=== PATIENT | male | born 1960 | race African-American/Black ===

== ENCOUNTER → 2017-04-13 | Day surgery (SDC) | payer OTHER ==
[~2017-04-13] MED LIST: GLUCOPHAGE850 MG PO; INVOKANA300 MG PO; LISINOPRIL20 MG PO; MEN'S 50+ DAIL1 EACH PO; METFORMIN HCL500 M1 PO; OXYCODONE-ACET1 EAC1 PO; PANTOPRAZOLE SO40 MG PO; VITAMIN B12-FO1 EACH PO
--- NOTE | ~2017-04-13 | OR ---
Unit #: [id number] #: [id number] Patient: BLAKE WHITT [id number] [address] [place], [place] [address] [id number] MR#: [id number] NAME: BLAKE WHITT ROOM: Date of Procedure: 04/13/2017 Admission Date: 04/13/2017 Surgeon: Sergo Desai III, M.D. : 1960 Attending Physician: Sergo Desai III, M.D. Primary Care Physician: Nabila Degroot M.D. OPERATIVE REPORT PREOPERATIVE DIAGNOSES Abdominal pain and personal history of colon polyps. POSTOPERATIVE DIAGNOSES Abdominal pain and personal history of colon polyps. Moderate gastritis. Moderate duodenitis. Normal colonoscopy. PROCEDURE PERFORMED Esophagogastroduodenoscopy with biopsy and colonoscopy to cecum. ANESTHESIA MAC. SPECIMEN Antrum was sent for MASSIMO and for path. COMPLICATIONS None apparent. INDICATIONS FOR PROCEDURE This is a 57-year-old gentleman, who has done well after lap banding losing 90 pounds. He has recently had some pain on an empty stomach in the epigastric region. He has had no vomiting. He also has a history of colon polyps and needs to have both the upper and lower endoscopies scheduled. DESCRIPTION OF PROCEDURE After the consent was obtained, the patient was brought to the endoscopy suite, and placed in the left lateral decubitus position. We titrated the above sedation and I passed an EGD scope easily into the esophagus under direct visualization. He had normal peristalsis. No evidence of any erosions or esophagitis. His lap band appeared to be in good position. There was no evidence of any kind of recurrent hiatal hernia. The scope passed easily through the band itself. He had some fairly significant gastritis near the antrum of the stomach. Photos and biopsies of this were taken as well as a MASSIMO specimen from the antrum. The pylorus was patent and first and second portions of the duodenum appeared normal. I then retroflexed the scope within the cardia and again, there was no evidence of any erosion of the gastric band itself and again, it appeared to be in good position. The scope was then straightened and carefully withdrawn. I then performed a rectal exam, I did not feel any masses. The scope was placed within the rectal vault. Air was insufflated and I Unit #: [id number] #: [id number] Patient: BLAKE WHITT navigated the scope all the way to the cecum without any difficulty. He had normal mucosa. No evidence any polyps or masses. No diverticular disease was seen. The scope was retroflexed within the rectum. No other masses were seen. The scope was then carefully withdrawn. The patient tolerated the procedure without any problems. I am going to go ahead and start him on Protonix and have him call my office early next I for biopsy results. Dictated by... Sergo Desai III, M.D. [facility] TD: 04/13/2017 14:03 JOB #: [id number] OPERATIVE REPORT Page 1 of 1 X Sergo Desai III, MD PROCEDURE OPERATIVE NOTE
== END | disposition home or self-care (01) ==
LOC: COPS 10:21
DX: K29.50 Unspecified chronic gastritis without bleeding (principal); K29.80 Duodenitis without bleeding; Z86.010 Personal history of colon polyps; E11.9 Type 2 diabetes mellitus without complications; Z79.84 Long term (current) use of oral hypoglycemic drugs; E66.9 Obesity, unspecified; M19.90 Unspecified osteoarthritis, unspecified site; Z98.84 Bariatric surgery status; F17.200 Nicotine dependence, unspecified, uncomplicated; J30.9 Allergic rhinitis, unspecified; E89.0 Postprocedural hypothyroidism
CPT/HCPCS: 82947; 87077; 88305; 88312; J2250